=== PATIENT | male | born 1935 | race Caucasian/White ===

== ENCOUNTER → 2018-01-16 13:41 | Outpatient (CLI) | payer MEDICARE, OTHER, SELFPAY ==
[2018-01-16 15:11] LABS: Anion Gap 10 (5-15); BUN 20 mg/dL (7-18); BUN/Creat Ratio 16.7 RATIO (10-20); Calcium,Total 8.2 mg/dL (8.5-10.1); Chloride 108 mmol/L (98-107); EST Glomerular Filtration Rate 62 mL/min (>60); Est Glom Filt Rate - Afr Amer 74 mL/min (>60); Glucose 104 mg/dL (74-106); Potassium 4.3 mmol/L (3.5-5.1); Sodium Level 143 mmol/L (136-145); Thyroid Stim Hormone (TSH) 4.78 uIU/mL (0.358-3.74)
== END ==
PROVIDERS: Family Provider Family Medicine; PCP Family Medicine; Visit Provider Nurse Practitioner Adult Health
DX: I25.10 Atherosclerotic heart disease of native coronary artery without angina pectoris (principal); R97.20 Elevated prostate specific antigen [PSA]; R94.6 Abnormal results of thyroid function studies
CPT/HCPCS: 36415; 80048; 84153; 84443

== ENCOUNTER → 2018-02-12 17:06 | Outpatient (CLI) | payer MEDICARE, OTHER, SELFPAY ==
--- NOTE | 2018-02-12 | IMM_PTH ---
PATIENT: KATHARINA PERALTA LOC: [facility] U#:[id number] AGE/SX: 89/M ROOM: RE02/12/[address]: Dr. Kofi Gaffney MD : 1935 BED: DIS: SPEC #: [id number] RECD: 02/14/18 12:29 STATUS: JOSEMANUEL REJb #: [id number] JOSIE: 02/12/18 00:[address]: Kofi Gaffney DEPT: IMMUNOHISTOCHEMISTRY RECD BY: Lauren Stewart ENTERED: 02/14/18 12:31 SP TYPE: IMMUNO OTHR DR: Dr. Sander Morris MD Tissues: C - PROSTATE RIGHT D - PROSTATE LEFT Procedures: 34BE12 (add) P40 (add) 34BE12 (initial) PHYSICIAN & INSTITUTION [place] [address] SPECIMEN INFORMATION: Tissue Source: C - Right prostate, base, core biopsy, D - Left prostate, apex, core biopsy Clinical Info: Elevated PSA Specimen Number: [id number] C & D CPT code: 70681, 72490 x3 METHODOLOGY: Deparaffinized sections of prefer/formalin-fixed tissue or PAP/DQ stained slides are incubated with monoclonal/polyclonal antibodies/oligonucleotide probes. Localization is made via biotin free immunoperoxidase method. Appropriate controls are performed and reacted as expected. Results on target cell population are indicated in the following table: RESULTS: ANTIBODY / CLONE RESULT Block C P40 (BC28) positive 34BE12 (34BE12) positive Block D P40 (BC28) positive 34BE12 (34BE12) positive These tests were developed and their performance characteristics determined by [facility]. They may not have been cleared or approved by the [place]. Food and Drug Administration. The FDA has determined that such clearance or approval is not necessary. INTERPRETATION: C. Right prostate, base, core biopsy: Negative for adenocarcinoma. D. Left prostate, apex, core biopsy: Negative for adenocarcinoma. SJ:mike 02/14/18
--- NOTE | 2018-02-12 08:00 | PROSBIL_PTH ---
PATIENT: KATHARINA PERALTA LOC: [facility] U#:[id number] AGE/SX: 89/M ROOM: RE02/12/[address]: Dr. Kofi Gaffney MD : 1935 BED: DIS: SPEC #: [id number] RECD: 02/12/18 16:35 STATUS: JOSEMANUEL TEA #: [id number] JOSIE: 02/12/18 08:[address]: Kofi Gaffney DEPT: SURGICAL PATHOLOGY RECD BY: Jefferson Paulino ENTERED: 02/13/18 13:22 SP TYPE: PROST BX CIERRA DR: Dr. Sander Morris MD Tissues: A - PROSTATE RIGHT B - PROSTATE RIGHT C - PROSTATE RIGHT D - PROSTATE LEFT E - PROSTATE LEFT F - PROSTATE LEFT Procedures: PROSTATE BX HEADER OPERATION: Prostate biopsy PRE-OP DIAGNOSIS: Elevated PSA TISSUE SUBMITTED: A - Right apex, B - Right mid, C - Right base, D - Left apex, E - Left mid, F - Left base MICROSCOPIC DIAGNOSIS A. Right prostate, apex, core biopsy: Prostatic tissue, negative for malignancy. B. Right prostate, mid, core biopsy: Prostatic tissue, negative for malignancy. C. Right prostate, base, core biopsy: Focal high-grade prostatic intraepithelial neoplasia (HGPIN). See comment. D. Left prostate, apex, core biopsy: Prostatic tissue, negative for malignancy. Focal atrophy. See comment. E. Left prostate, mid, core biopsy: Prostatic tissue, negative for malignancy. Focal atrophy. F. Left prostate, base, core biopsy: Prostatic tissue, negative for malignancy. Focal atrophy and chronic inflammation. SJ:mike 02/14/18 COMMENT C & D. Immunohistochemistry ([id number]) supports the above diagnosis. MICROSCOPIC DESCRIPTION Slides are reviewed. GROSS DESCRIPTION A - Received is one container designated prostate, right apex. The specimen consists of one elongated fragment of light cassidy-white soft tissue measuring 1 cm in length and 0.1 cm in diameter. The specimen is totally submitted in one cassette. B - Received is one container designated prostate, right mid. The specimen consists of one elongated fragment of light cassidy-white soft tissue measuring 1.5 cm in length and 0.1 cm in diameter. The specimen is totally submitted in one cassette. C - Received is one container designated prostate, right base. The specimen consists of one elongated fragment of light cassidy-white soft tissue measuring 1.5 cm in length and 0.1 cm in diameter. The specimen is totally submitted in one cassette. D - Received is one container designated prostate, left apex. The specimen consists of one elongated fragment of light cassidy-white soft tissue measuring 1 cm in length and 0.1 cm in diameter. The specimen is totally submitted in one cassette. E - Received is one container designated prostate, left mid. The specimen consists of one elongated fragment of light cassidy-white soft tissue measuring 1.3 cm in length and 0.1 cm in diameter. The specimen is totally submitted in one cassette. F - Received is one container designated prostate, left base. The specimen consists of one elongated fragment of light cassidy-white soft tissue measuring 1.5 cm in length and 0.1 cm in diameter. The specimen is totally submitted in one cassette. / SJ:rg 02/13/18 TC:5 CPT: G0146
== END ==
PROVIDERS: Family Provider Family Medicine; PCP Family Medicine; Visit Provider Urology
DX: R97.20 Elevated prostate specific antigen [PSA] (principal)
CPT/HCPCS: 88305; 88341; 88342; G0416

== ENCOUNTER → 2018-03-20 10:38 | Outpatient (CLI) | payer MEDICARE, OTHER, SELFPAY | PROVIDERS: Family Provider Family Medicine; PCP Family Medicine; Visit Provider Urology | DX: N39.0 Urinary tract infection, site not specified (principal) | CPT/HCPCS: 87086 ==

== ENCOUNTER → 2018-05-21 08:50 | Outpatient (CLI) | payer MEDICARE, OTHER, SELFPAY ==
[2018-05-21 10:26] LABS: AST(SGOT) 20 U/L (15-37); Alanine Aminotransfer ALT/SGPT 17 U/L (16-61); Albumin, Serum 3.5 g/dL (3.2-5.0); Alkaline Phosphatase 83 U/L (45-117); Bilirubin, Direct 0.18 mg/dL (0.00-0.30); Cholesterol 106 mg/dL (200); Globulin 3.1 g/dL (2.2-4.2); High Density Lipoprotein 52 mg/dL; Protein, Total 6.6 g/dL (6.4-8.2); Triglycerides 67 mg/dL; Very Low Density Lipoprotein 13 mg/dL (5-40)
== END ==
PROVIDERS: Family Provider Family Medicine; PCP Family Medicine; Visit Provider Internal Medicine Cardiovascular Disease
DX: E78.5 Hyperlipidemia, unspecified (principal); Z79.899 Other long term (current) drug therapy
CPT/HCPCS: 36415; 80061; 80076

== ENCOUNTER → 2018-05-29 05:59 | Outpatient (CLI) | payer MEDICARE, OTHER, SELFPAY ==
--- NOTE | 2018-05-29 09:20 | STRESSREP ---
Stress Test Report Date: 05/21/2018 Procedure: Exercise tolerance test/imaging study Indications: Shortness of breath/dyspnea with exertion; abnormal ECG; CAD Consent: Per the patient Procedure: The patient exercised on a Andrea protocol for 6 minutes completing Stage II achieving a peak heart rate of 136 bpm (99 % predicted maximal heart rate) with a peak blood pressure 184/60 mmHg and a peak MET capacity of 7 METs. The baseline ECG demonstrated sinus bradycardia; right bundle branch block. The peak exercise ECG demonstrated continued right bundle branch block. There was a rare PVC pretest. The functional capacity was considered good. There was no complaint of chest discomfort during exercise or recovery. The examination was discontinued secondary to dyspnea. Impression: 1. Technically adequate (percent predicted maximal heart rate greater than 85%) exercise tolerance test 2. Peak exercise ECG demonstrated a continued right bundle branch block 3. There was a rare PVC pretest. 4. Nuclear images pending Myocardial perfusion imaging study: Technique: The patient was injected with 11.4 mCi of technetium 99m Cardiolite and subsequently rest SPECT Cardiolite nuclear imaging was obtained in the horizontal long, vertical long, and short axis views. The patient exercised on a Andrea protocol for 6 minutes completing Stage II achieving a peak heart rate of 136 bpm (99 % predicted maximal heart rate) with a peak blood pressure 184/60 mmHg and a peak MET capacity of 7 METs. The patient was injected with 33.8 mCi of technetium 99m Cardiolite and subsequently stress SPECT Cardiolite nuclear imaging was obtained in the horizontal long, vertical long, and short axis views. A gated Cardiolite study at peak stress was obtained. Interpretation: Rest and stress SPECT Cardiolite nuclear imaging status post realignment, normalization, and attenuation correction, demonstrates the appearance of extracardiac/gastrointestinal tracer uptake near the inferior segments, especially at rest, and otherwise appears to demonstrate relative uniform tracer uptake and myocardial perfusion appearing within normal limits. There is end systolic thickening and brightening. The gated Cardiolite study demonstrates myocardial thickening and inward wall motion. The reported LVEF is 55 %. Impression: 1. Rest and stress SPECT Cardiolite nuclear imaging demonstrate relative uniform tracer uptake and myocardial perfusion appearing within normal limits. 2. The gated Cardiolite study reports an LVEF of 55 %. This note was generated with [employer] software. It may contain incorrect words, spelling, and punctuation that were not noted in checking the note before signing.
== END ==
PROVIDERS: Family Provider Family Medicine; PCP Family Medicine; Visit Provider Internal Medicine Cardiovascular Disease
DX: I25.10 Atherosclerotic heart disease of native coronary artery without angina pectoris (principal); R06.00 Dyspnea, unspecified
CPT/HCPCS: 78452; 93017; A9500; A4216

== ENCOUNTER → 2018-08-29 08:55 | Outpatient (CLI) | payer MEDICARE, OTHER, SELFPAY ==
[2018-05-24 09:32] VITALS: BMI 25.2
--- OUTSIDE RECORDS SUMMARY | 2018-10-24 14:43 | XMS RPT_ITS ---
:1935 Author Organization OHIP Support Name Relationship Address Phone MARCY PERALTA Unavailable [address] + [place] [address] R Unavailable Unavailable Unavailable KINDER, MARCY Unavailable [address] + [place] [address] R Unavailable Unavailable Unavailable KINDER, MARCY Unavailable [address] + [place] [address] R Unavailable Unavailable Unavailable KINDER, MARCY Unavailable [address] + [place] [address] R Unavailable Unavailable Unavailable KINDER, MARCY Unavailable [address] + [place] [address] R Unavailable Unavailable Unavailable KINDER, MARCY Unavailable [address] + [place] [address] R Unavailable Unavailable Unavailable KINDER, MARCY Unavailable [address] + [place] [address] R Unavailable Unavailable Unavailable KINDER, MARCY Unavailable [address] + [place] [address] R Unavailable Unavailable Unavailable KINDER, MARCY Unavailable [address] [phone] [place] [address] R Unavailable Unavailable Unavailable KINDER, MARCY Unavailable [address] [phone] [place] [address] R Unavailable Unavailable Unavailable KINDER, MARCY Unavailable [address] [phone] [place] [address] R Unavailable Unavailable Unavailable Care Team Providers Name Role Phone Stephanie Ellington Attending Unavailable Sander Morris Primary Care Unavailable Stephanie Ellington Referring Unavailable Kofi Gaffney Attending Unavailable Sander Morris Primary Care Unavailable Kofi Gaffney Referring Unavailable Earl Mckinney Attending Unavailable Sander Morris Referring Unavailable Kofi Gaffney Attending Unavailable Gulshan, Kofi Sena Referring Unavailable Morris, Sander Primary Care Unavailable Moodispaw, Earl Attending Unavailable Morris, Sander Referring Unavailable Morin, Estella Attending Unavailable Moodispaw, Earl Attending Unavailable Moodispaw, Earl Referring Unavailable Morris, Sander Primary Care Unavailable Moodispaw, Earl Attending Unavailable Morris, Sander Referring Unavailable Moodispaw, Earl Attending Unavailable Moodispaw, Earl Referring Unavailable Morris, Sander Primary Care Unavailable Moodispaw, Earl Attending Unavailable Moodispaw, Earl Referring Unavailable Gulshan, Kofi Sena Attending Unavailable Gulshan, Kofi Sena Referring Unavailable Morris, Sander Primary Care Unavailable PROBLEMS PROBLEMS DATE TYPE CONDITION / CODE ATTENDING STATUS SOURCE 05/24/2018 Unknown I25.10 - Earl Mckinney Active [facility] Atherosclerotic heart Community disease of [facility] coronary artery Repository without angina pectoris / I25.10(ICD-10) 05/24/2018 Unknown R06.00 - Dyspnea, CedrickisEarl aeljandro Active [facility] unspecified / Community R06.00(ICD-10) Hospital Repository 05/21/2018 Unknown Z79.899 - Other long Earl Mckinney Active [facility] term (current) drug Community therapy / Hospital Z79.899(ICD-10) Repository 05/21/2018 Unknown E78.5 - Moodispaharriet, Earl Active [facility] Hyperlipidemia, [facility] unspecified / Hospital E78.5(ICD-10) Repository 05/08/2018 Unknown N39.0 - Urinary tract GulshanKofi mustafa Active [facility] infection, site not [facility] specified / Hospital N39.0(ICD-10) Repository PROCEDURES PROCEDURES No Procedure Records FoundRESULTS RESULTS PSA,TOTAL- DIAGNOSTIC Collected: 08/29/2018 Status: F Source: [place] 9:03 AM [facility] REPOSITORY TYPE CODE TESTS RESULT OUT OF REFERENCE UNITS RANGE LAB L501.9940 0.0-4.0 ng/mL PSA, High DIAGNOSTIC 11.10 Result Comment: This test was performed using the TPSA assay method for the [employer] chemistry system. Values obtained with different assay methods cannot be used interchangably. When changing PSA assays in the course of monitoring a patient, additional sequential testing should be carried out to confirm baseline values. Performed By: #### L501.9940 #### [facility] [address] [place], [address] STRESS REPORT Observed: 05/29/2018 Status: F Source: [place] 9:24 AM [facility] REPOSITORY [facility] Cardiovascular Services [address] [place] [address] MR#: [id number] Acct: [id number] Name: ROBERT PERALTA Rep #: [id number] : 1935 83 From: Earl Mckinney MD Primary Care: Sander Morris MD Status: REG CLI Ordering Dr: Hakan Taylor Stress Test Report Date: 05/21/2018 Procedure: Exercise tolerance test/imaging study Indications: Shortness of breath/dyspnea with exertion; abnormal ECG; CAD Consent: Per the patient Procedure: The patient exercised on a Andrea protocol for 6 minutes completing Stage II achieving a peak heart rate of 136 bpm (99 % predicted maximal heart rate) with a peak blood pressure 184/60 mmHg and a peak MET capacity of 7 METs. The baseline ECG demonstrated sinus bradycardia; right bundle branch block. The peak exercise ECG demonstrated continued right bundle branch block. There was a rare PVC pretest. The functional capacity was considered good. There was no complaint of chest discomfort during exercise or recovery. The examination was discontinued secondary to dyspnea. Impression: 1. Technically adequate (percent predicted maximal heart rate greater than 85%) exercise tolerance test 2. Peak exercise ECG demonstrated a continued right bundle branch block 3. There was a rare PVC pretest. 4. Nuclear images pending Myocardial perfusion imaging study: Technique: The patient was injected with 11.4 mCi of technetium 99m Cardiolite and subsequently rest SPECT Cardiolite nuclear imaging was obtained in the horizontal long, vertical long, and short axis views. The patient exercised on a Andrea protocol for 6 minutes completing Stage II achieving a peak heart rate of 136 bpm (99 % predicted maximal heart rate) with a peak blood pressure 184/60 mmHg and a peak MET capacity of 7 METs. The patient was injected with 33.8 mCi of technetium 99m Cardiolite and subsequently stress SPECT Cardiolite nuclear imaging was obtained in the horizontal long, vertical long, and short axis views. A gated Cardiolite study at peak stress was obtained. Interpretation: Rest and stress SPECT Cardiolite nuclear imaging status post realignment, normalization, and attenuation correction, demonstrates the appearance of extracardiac/gastrointestinal tracer uptake near the inferior segments, especially at rest, and otherwise appears to demonstrate relative uniform tracer uptake and myocardial perfusion appearing within normal limits. There is end systolic thickening and brightening. The gated Cardiolite study demonstrates myocardial thickening and inward wall motion. The reported LVEF is 55 %. Impression: 1. Rest and stress SPECT Cardiolite nuclear imaging demonstrate relative uniform tracer uptake and myocardial perfusion appearing within normal limits. 2. The gated Cardiolite study reports an LVEF of 55 %. This note was generated with [employer] software. It may contain incorrect words, spelling, and punctuation that were not noted in checking the note before signing. 05/29/18923 <Electronically signed by Earl Mckineny MD> Date Earl Mckinney MD CC: Sander Morris MD; Sander Morris MD; Earl Mckinney MD Date Dictated: 05/29/18919 Date Transcribed: 05/29/18919 Intelligence Applications: PM Signed CARDIOLOGY VISIT Observed: 05/24/2018 Status: F Source: [place] REPORT 10:24 AM [facility] REPOSITORY [facility] [place] [address] [place] [address] OFFICE VISIT Date of Service: 05/24/18 MR#: [id number] Acct: [id number] Name: ROBERT PERALTA Rep #: [id number] : 1935 Provider: Earl Mckinney MD Age/Sex: 83/M [place] [facility] [place]: Signed HPI HPI Details: ROBERT PERALTA, is a 83 M who presents to the office today for for outpatient cardiovascular follow-up of his history of underlying CAD, PACs/PVCs, sinus bradycardia, and abnormal ECG with a bifascicular block pattern, hyperlipidemia, with concerns of exertional shortness of breath/dyspnea. He states that he has noticed, as well as his has noticed, over time that he is more short of breath and dyspneic with exertional activity such as climbing stairs. He has attributed this to his age as opposed to other medical conditions. He does not describe associated chest discomfort. He has had no orthopnea or PND or peripheral pitting edema. There has been no near syncope or syncope. He recently had a lipid profile performed. His total cholesterol was 106 with an LDL of 41 and an HDL of 52. His triglyceride levels were within normal range at 67. His AST and ALT were within normal range. Intake Vital Signs05/24/18 Height 5 ft 6 in 05/24/18 Weight: 156 lb 05/24/18 Body Mass Index (BMI) 25.2 05/24/18 Blood Pressure 120/60 Intake Visit Reasons: 6 M FU Allergies No Known Allergies Allergy (Unverified 05/24/18 09:32) Medications aspirin 81 mg tablet,delayed release 81 mg PO QDAY #1 tab 11/07/17 [Rx Confirmed 05/24/18] atorvastatin 10 mg tablet 10 mg PO QDAY #1 tab 11/07/17 [Rx Confirmed 05/24/18] lisinopril 2.5 mg tablet 2.5 mg PO QDAY #90 tab 01/31/18 [Rx Confirmed 05/24/18] fluticasone 50 mcg/actuation nasal spray,suspension 1 spray INTRANASAL QDAY 05/08/18 [History Confirmed 05/24/18] tamsulosin 0.4 mg capsule 0.4 mg PO QDAY 05/08/18 [History Confirmed 05/24/18] vit C 150 mg-vit E 30 unit-lutein 5 zi-kbzyifoa-evpma 3 150 mg capsule 1 cap PO QDAY 05/08/18 [History Confirmed 05/24/18] finasteride 5 mg tablet 5 mg PO DAILY 05/24/18 [History Confirmed 05/24/18] [facility] Medical History Left anterior fascicular block (Acute) Hyperlipidemia (Chronic) RBBB (Acute) Sinus bradycardia (Acute) Premature atrial contractions (Acute) Premature ventricular contraction (Acute) 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) BPH (benign prostatic hyperplasia) (Acute) Surgical History History of cataract surgery (Resolved) History of inguinal hernia repair, bilateral (Resolved) Hx of appendectomy (Resolved) S/P excision of lipoma (Resolved) Social History Smoking Status: Former smoker alcohol intake: current details: occasional wine 3-4 x week substance use type: does not use ROS Const Const: Negative for fatigue, weakness, weight gain, weight loss, frequent falls or excessive sweating Eyes Eyes: Negative for change in vision, blurry vision or transient loss of vision ENT ENT: Negative for dizziness or balance problems Cardio Chest Pain: No Palpitations: No Edema: None Muscle aches with walking: None Resp Respiratory: Positive for SOB with activity (occasional increased SOB going up/downstairs); negative for SOB at rest GI GI: Negative vomiting or vomiting blood/hematemesis : Negative for hematuria Musc Musc: Negative for balance problems, muscle aches/ myalgia, muscle weakness or joint pain Skin Skin: Negative non-healing lesions or rash Neuro Neuro: Negative for weakness, blurry vision, dizziness, lightheadedness, frequent falls or orthostatic symptoms Nader Hematologic/Lymphatic: Negative for easy bleeding Endo Endo: Negative for fatigue or excessive sweating Psych Psych: Negative for anxiety or depression Allergy Allergy/Immunology: Negative for hives, Negative for rash Cardiology Exam Const Appearance: cooperative, healthy appearing, comfortable, no acute distress, well developed and well groomed Nutritional Appearance: thin Orientation: alert, awake and oriented x3 Head Head: normal to inspection, normocephalic and atraumatic Ears: hearing grossly normal bilaterally Nose: external nose normal Face and Sinus: face symmetric Mouth: oral mucosae normal Teeth and gingiva: fair dentition Eyes Eyelids: eyelids normal Conjunctivae: conjunctivae normal Pupils: PERRL EOM: EOM intact bilaterally Neck Neck: normal visual inspection and full ROM Carotids: normal carotid upstroke Chest Chest inspection: normal inspection of the chest and symmetric chest movement Auscultation: Bilateral: Clear to Auscultation Cardio Palpation: normal PMI Rate: regular rate Rhythm: regular rhythm Heart sounds: S1 normal and S2 normal GI GI: normal to inspection, soft, no hepatosplenomegaly and bowel sounds present Neuro General: alert, awake and oriented x3 Skin Skin: no rashes or lesions noted Extremities Pulses: Normal: Right Radial Pulse, Left Radial Pulse Lower Extremity Edema: None: Bilateral Psych Psychological: normal affect Supplemental Info He did have a transthoracic echocardiogram performed on 02/16/2012 Interpretation-summary Left ventricular systolic function is normal. The estimated ejection fraction is 55 %. Mild mitral annular calcification.Mild (1+) mitral valve insufficiency. Trivial tricuspid valve insufficiency. Trivial aortic valve insufficiency. Mild to moderate central and eccentric pulmonic insufficiency. Right ventricular systolic pressure estimated to be 25 mmHg. He had an exercise tolerance test on 05/12/2015. EXERCISE TOLERANCE TEST: The patient exercised on a Andrea protocol for 6 minutes completing stage 2 achieving a peak heart rate of 125 beats per minute (89% predicted maximum heart rate) and a peak blood pressure of 150/64 mmHg and a peak MET capacity of 7 METS. The baseline ECG demonstrated sinus bradycardia with a right bundle branch block pattern. The peak exercise ECG demonstrated no obvious ECG changes compared to baseline. There was a rare PAC during recovery. The functional capacity was considered average. The patient had no complaint of chest discomfort during exercise or recovery. The examination was discontinued secondary to dyspnea. IMPRESSION: 1. Technically adequate (percent predicted maximum heart rate greater than 85%) exercise tolerance test. 2. Peak exercise ECG with continued right bundle branch block with no obvious change compared to baseline. 3. Rare PAC during recovery. 4. Nuclear images pending. MYOCARDIAL PERFUSION IMAGING STUDY: TECHNIQUE: The patient was injected with 11.1 mCi of Tc99m Cardiolite and subsequently rest SPECT Cardiolite nuclear imaging was obtained in the horizontal long, vertical long and short axes views. The patient exercised on a Andrea protocol for 6 minutes achieving a peak heart rate of 125 beats per minute (89% predicted maximum heart rate) and a peak blood pressure of 150/64 mmHg and a peak MET capacity of 7 METS. The patient was injected with 36.0 mCi of Tc99m Cardiolite and subsequently stress SPECT Cardiolite nuclear imaging was obtained in the horizontal long, vertical long and short axes views. A gated Cardiolite study at peak stress was obtained. INTERPRETATION: Rest and stress SPECT Cardiolite nuclear imaging both demonstrate an area of extracardiac/hepatic and gastrointestinal tracer uptake near the inferior segments. Both demonstrate an area of diminished tracer uptake in portions of the basal inferoseptal and basal inferior segments extending through the mid inferior segments and the inferior apical segments. These findings appear to be either similar between rest and stress, or more prominent at rest as opposed to stress. The inferoapical segment appears somewhat more prominent following stress as opposed to rest. There are similar type findings on the resting and stress polar map images. There is notation of end systolic thickening and brightening. The gated Cardiolite study demonstrates myocardial thickening and inward wall motion. The reported LVEF was 52%. The aforementioned changes appear compatible with the effects of shifting soft tissue attenuation/artifact and/or gastrointestinal tracer uptake/detraction and physiologic apical thinning with no myocardial perfusion changes considered diagnostic for previous myocardial injury/infarction or stress-induced myocardial ischemia. IMPRESSION: 1. Rest and stress SPECT Cardiolite nuclear imaging demonstrate myocardial perfusion changes appearing compatible with the effects of shifting soft tissue attenuation/artifact and gastrointestinal tracer uptake/detraction and physiologic apical thinning with no myocardial perfusion changes considered diagnostic for previous myocardial injury/infarction or stress-induced myocardial ischemia. 2. The gated Cardiolite study reports an LVEF of 52%. He had a diagnostic cardiac catheterization performed on 05/08/2012 at [facility]. FINAL IMPRESSION 1. Elevation of the resting left ventricular end-diastolic pressure, 2. Left ventricle: A. Normal left ventricular size, wall motion, systolic function. B. Estimated LVEF 55 percent. 3. Left main coronary artery: A. Minimal luminal irregularities. 4. Left anterior descending coronary: A. Proximal 50 percent diffuse irregular appearing stenosis (pre and status post first septal transportation escort). B. Diagonal branch number 1 with proximal 50-75 percent appearing stenosis (located in the area of a eagle bend), 5. Left circumflex coronary. A. Large codominant vessel, 13. Diffuse minimal luminal irregularities. 6. Right coronary artery. A. Large codominant vessel, 13. Diffuse minimal luminal irregularities. He had an FFR procedure performed at [facility] on 07/25/2012. Impression: 60 to 70% stenosis in the proximal to mid left anterior descending artery. Fractional Flow Union of proximal to mid left anterior descending artery 0.83, findings were not hemodynamically significant. Closure of access site with the [employer]. He did have a Holter monitor performed on 03/13/2012. SINUS RHYTHM WITH BUNDLE BRANCH BLOCK MINIMUM HR 47 8PM AT 2:06:27 AM, NO ACTIVITY OR SYMPTOM RECORDED. AVERAGE HR 64 BPM MAXIMUM HR 120 8PM AT 10:02:28 AM, NO ACTIVITY OR SYMPTOM RECORDED. RARE ISOLATED PREMATURE ATRIAL COMPLEXES. 5 ATRIAL COUPLETS. TWO RUNS TOTALING 6 BEATS. THE LONGEST AND FASTEST RUN WAS AN ATRIAL TRIPLET RATE 156 BPM AT 11:19:57AM. RARE ISOLATED PREMATURE VENTRICULAR COMPLEXES. NO RUNS NOTED. NO SYMPTOMS DOCUMENTED IN 24 HOUR HOLTER DIARY. He had a chest CT scan for coronary artery evaluation on 05/01/2012 CORONARY ARTERIES LEFT MAIN CORONARY ARTERY This is a large vessel, which appears to give rise to the left anterior descending and left circumflex coronary arteries. It appears to have a mid mild eccentric nonobstructive soft plaque. LEFT ANTERIOR DESCENDING CORONARY ARTERY This is a large vessel, which appears to give rise to a small septal transportation escort and a moderate sized first diagonal branch as it courses towards the apical area. The LAD demonstrates proximal mixed mild eccentric nonobstructive soft and calcified plaque. Following the septal transportation escort and diagonal branch there appears to be an area compatible with moderate eccentric nonobstructive soft plaque. LEFT CIRCUMFLEX CORONARY ARTERY This is a large potentially codominant system, which appears to give rise to a. moderate sized obtuse marginal branch. The LCX distribution appears to demonstrate diffuse mild eccentric nonobstructive soft plaque. The mid LCX suggests an area appearing compatible with a moderate eccentric nonobstructive soft plaque. RIGHT CORONARY ARTERY This appears to be a large dominant system. Ft demonstrates proximal mixed mild eccentric nonobstructive and calcified plaque. There appears to be diffuse mild eccentric nonobstructive soft plaque. STUDY FINDINGS Left ventricle: Left ventricular cine appears compatible with borderline low left ventricular systolic function. Left atrium: Patent without obvious angiographic evidence of a filling defect. Mitral valve: Appearing bileaflet. Aortic valve: Appearing trileaflet. PULMONARY ARTERIES The main pulmonary artery and the right and left pulmonary arteries that are visualized appear without obvious filling defect. THORACIC AORTA The distal descending thoracic aorta appears to demonstrate mild eccentric calcified plaque. CORONARY CALCIUM SCORE The coronary calcium score is reported at 42.32, which, according to prepublished reference tables would be compatible with mild plaque burden with the likelihood of mild coronary artery disease. Assessment AND Plan 1. 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 Based upon his cardiovascular disease process he will have follow-up evaluation with an exercise tolerance test/imaging study. Depending upon the findings he may or may not need additional cardiac versus noncardiac evaluation. In the interim he will continue his medical man trend. Orders Orders: 2. Premature atrial beat I49.1 Plan He does have a history of PACs and PVCs. He appears to be without obvious symptoms at this time. He will T need to be followed. 3. Premature ventricular beat I49.3 Plan Again he has a history of PACs and PVCs. Again he is without obvious symptoms at this time. He will continue to be followed. 4. Sinus bradycardia R00.1 Plan His cardiac rate and rhythm have been followed. He appears to be doing well at the present time. 5. 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 He continues to be followed and evaluated as deemed appropriate. 6. Hyperlipidemia, unspecified hyperlipidemia type E78.5 Plan His lipid labs have been reviewed. He will continue lipid- lowering therapy and follow-up as deemed appropriate. 7. Dyspnea, unspecified type R06.00 Plan He will undergo evaluation of his dyspnea as noted above Orders Orders: Plan Detail Additional Comments Thank you for allowing me to participate in the care of your patient. Please don't hesitate to call if any issues arise. This note was generated using a voice recognition system and there may be incorrect words, spelling or punctuation that were not noted when reviewing the office note prior to saving. 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 transplanted heart: eagle heart Premature atrial beat I49.1 Premature ventricular beat I49.3 Sinus bradycardia R00.1 RBBB I45.10 Hyperlipidemia, unspecified hyperlipidemia type E78.5 Hyperlipidemia type: unspecified Dyspnea, unspecified type R06.00 Dyspnea type: unspecified 05/24/18 1024 <Electronically signed by Earl Mckinney MD> Date Earl Mckinney MD Cosigner Signature: Date (if applicable) CC: Sander Morris MD LIVER PROFILE Collected: 05/21/2018 Status: F Source: [place] 9:02 AM [facility] REPOSITORY Order Comment: Order Date: 06/23/17 Order Info: [id number] - *Hepatic Function Panel Order Info: [id number] - *Lipid Profile CC PCP Comments: 12 hours fasting, may have water. TYPE CODE TESTS RESULT OUT OF RANGE REFERENCE UNITS LAB L501.1500 6.4-8.2 g/dL Normal T PROT 6.6 LAB L501.1800 3.2-5.0 g/dL Normal ALB 3.5 LAB L501.1950 2.2-4.2 g/dL Normal GLOB 3.1 LAB L501.4100 15-37 U/L Normal AST 20 LAB L501.4305 45-117 U/L Normal ALK P 83 LAB L501.4405 16-61 U/L Normal ALT 17 LAB L501.4600 0.20-1.00 mg/dL Normal T BILI 0.70 LAB L501.4700 0.00-0.30 mg/dL Normal D BILI 0.18 Performed By: #### L500.3400 #### [facility] [place], [address] LIPID PROFILE Collected: 05/21/2018 Status: F Source: [place] 9:02 AM [facility] REPOSITORY Order Comment: Order Date: 06/23/17 Order Info: [id number] - *Hepatic Function Panel Order Info: [id number] - *Lipid Profile CC PCP Comments: 12 hours fasting, may have water. TYPE CODE TESTS RESULT OUT OF RANGE REFERENCE UNITS LAB L501.4900 200 mg/dL Normal CHOL 106 Result Comment: <200 mg/dL Desirable 200-240 mg/dL Borderline >240 mg/dL High Risk LAB L501.5000 mg/dL Normal TRIG 67 Result Comment: The drugs N-Acetylcysteine and Metamizole may falsely depress this assay. Serum Triglycerides Reference Interval Normal <150 mg/dL Borderline high 150 - 199 mg/dL High 200 - 499 mg/dL Very High > or = 500 mg/dL LAB L501.6400 mg/dL Normal HDL 52 Result Comment: The drugs N-Acetylcysteine and Metamizole may falsely depress this assay. Reference Range HDL <40 mg/dL Low HDL Cholesterol HDL >or= 60 mg/dL High HDL Cholesterol LAB L501.6500 0-130 mg/dL Normal LDL 41 LAB L501.6600 5-40 mg/dL Normal VLDL 13 Performed By: #### L500.4100 #### [facility] [address] [place], [address] Observed: 03/20/2018 Status: F Source: FAN CULTURE, URINE 10:45 AM [facility] REPOSITORY Urine Culture Culture exhibits no growth. Performed By: #### M100.0650 #### [facility] [address] [place], [address] PROSTATE BIOPSY Observed: 02/12/2018 Status: F Source: FAN BILATERAL 8:00 AM [facility] REPOSITORY Patient: ROBERT PERALTA : 1935 (82/M) Acct Num: [id number] Phys: Gulshan HERNDON,Ramon Unit Num: [id number] Loc: LABSPEC Specimen: [id number] Received: 02/12/181634 Spec Type: PROST BX TISSUES TISSUES: A. PROSTATE RIGHT B. PROSTATE RIGHT C. PROSTATE RIGHT D. PROSTATE LEFT E. PROSTATE LEFT F. PROSTATE LEFT COMMENT C AND D. Immunohistochemistry ([id number]) supports the above diagnosis. GROSS DESCRIPTION A - Received is one container designated prostate, right apex. The specimen consists of one elongated fragment of light cassidy-white soft tissue measuring 1 cm in length and 0.1 cm in diameter. The specimen is totally submitted in one cassette. B - Received is one container designated prostate, right mid. The specimen consists of one elongated fragment of light cassidy-white soft tissue measuring 1.5 cm in length and 0.1 cm in diameter. The specimen is totally submitted in one cassette. C - Received is one container designated prostate, right base. The specimen consists of one elongated fragment of light cassidy-white soft tissue measuring 1.5 cm in length and 0.1 cm in diameter. The specimen is totally submitted in one cassette. D - Received is one container designated prostate, left apex. The specimen consists of one elongated fragment of light cassidy-white soft tissue measuring 1 cm in length and 0.1 cm in diameter. The specimen is totally submitted in one cassette. E - Received is one container designated prostate, left mid. The specimen consists of one elongated fragment of light cassidy-white soft tissue measuring 1.3 cm in length and 0.1 cm in diameter. The specimen is totally submitted in one cassette. F - Received is one container designated prostate, left base. The specimen consists of one elongated fragment of light cassidy-white soft tissue measuring 1.5 cm in length and 0.1 cm in diameter. The specimen is totally submitted in one cassette. / GYPSY:mike 02/13/18 TC:5 CPT: G0146 HEADER OPERATION: Prostate biopsy PRE-OP DIAGNOSIS: Elevated PSA TISSUE SUBMITTED: A - Right apex, B - Right mid, C - Right base, D - Left apex, E - Left mid, F - Left base MICROSCOPIC DESCRIPTION Slides are reviewed. MICROSCOPIC DIAGNOSIS A. Right prostate, apex, core biopsy: Prostatic tissue, negative for malignancy. B. Right prostate, mid, core biopsy: Prostatic tissue, negative for malignancy. C. Right prostate, base, core biopsy: Focal high-grade prostatic intraepithelial neoplasia (HGPIN). See comment. D. Left prostate, apex, core biopsy: Prostatic tissue, negative for malignancy. Focal atrophy. See comment. E. Left prostate, mid, core biopsy: Prostatic tissue, negative for malignancy. Focal atrophy. F. Left prostate, base, core biopsy: Prostatic tissue, negative for malignancy. Focal atrophy and chronic inflammation. GYPSY:mike 02/14/18 PSA RESULTS Date Time Test Result Flag (u) Normal Range 12/12/14 1356 PSA,TOT SCREEN 14.30 H 0.00-4.00 ng/mL This test was performed using the TPSA assay method for the [employer] (Former[employer]) system. Values obtained with different assay methods cannot be used interchangably. When changing PSA assays in the course of monitoring a patient, additional sequential testing should be carried out to confirm baseline values. Date Time Test Result Flag (u) Normal Range 01/16/18 1354 PSA, DIAGNOSTIC 20.80 H 0.0-4.0 ng/mL This test was performed using the TPSA assay method for the [employer] chemistry system. Values obtained with different assay methods cannot be used interchangably. When changing PSA assays in the course of monitoring a patient, additional sequential testing should be carried out to confirm baseline values. Signed Tao Villeda 02/15/18 <signature on file> Performed By: #### PPROSBIL #### [facility] [address] [place] [address]. [place], [address] IMMUNOHISTOCHEMISTRY Observed: 02/12/2018 Status: F Source: [place] 12:00 AM [facility] REPOSITORY Patient: ROBERT EPRALTA : 1935 (82/M) Acct Num: [id number] Phys: Gulshan HERNDON,Kofi Sena Unit Num: [id number] Loc: LABSPEC Specimen: [id number] Received: 02/14/18 - 1229 Spec Type: IMMUNO TISSUES TISSUES: C. PROSTATE RIGHT - BASE D. PROSTATE LEFT - APEX SPECIMEN INFORMATION: Tissue Source: C - Right prostate, base, core biopsy, D - Left prostate, apex, core biopsy Clinical Info: Elevated PSA Specimen Number: [id number] C AND D CPT code: 35449, 05515 x3 METHODOLOGY: Deparaffinized sections of prefer/formalin-fixed tissue or PAP/DQ stained slides are incubated with monoclonal/polyclonal antibodies/oligonucleotide probes. Localization is made via biotin free immunoperoxidase method. Appropriate controls are performed and reacted as expected. Results on target cell population are indicated in the following table: RESULTS: ANTIBODY / CLONE RESULT Block C P40 (BC28) positive 34BE12 (34BE12) positive Block D P40 (BC28) positive 34BE12 (34BE12) positive These tests were developed and their performance characteristics determined by [facility]. They may not have been cleared or approved by the U.S. Food and Drug Administration. The FDA has determined that such clearance or approval is not necessary. INTERPRETATION: C. Right prostate, base, core biopsy: Negative for adenocarcinoma. D. Left prostate, apex, core biopsy: Negative for adenocarcinoma. SJ:mike 02/14/18 [facility] [address] [address] Signed Tao Berkowitzin 02/15/18 <signature on file> Performed By: #### PIMM #### [facility] [address] [place] [address]. [place], [address] BASIC METABOLIC Collected: 01/16/2018 Status: F Source: [place] PROFILE (BMP) 1:54 PM [facility] REPOSITORY Order Comment: Order Date: 08/14/17 Order Info: 0667-1 - BMP Order Info: 3016-3 - [facility] SEND RESULTS OF PSAD TO [facility]. TYPE CODE TESTS RESULT OUT OF RANGE REFERENCE UNITS LAB L501.0100 74-106 mg/dL Normal GLU 104 Result Comment: Fasting Glucose result from 100 to 125 mg/dL suggests IMPAIRED HOMEOSTASIS per A.D.A. criteria. Please note revised GLUCOSE reference range effective 2017. LAB L501.1000 7-18 mg/dL High BUN 20 LAB L501.1100 0.70-1.30 mg/dL Normal CREAT,SERUM 1.20 Result Comment: The validity of the calculated GFR AND GFRAA in patients over 70 years has not been determined. Clinical correlation is essential. LAB L501.1110 >60 mL/min Normal EST GFR 62 Result Comment: Non- GFR Calc LAB L501.1115 >60 mL/min Normal EST GFR - AA 74 Result Comment: GFR Calc LAB L501.1300 10-20 RATIO Normal BUN/CRE 16.7 LAB L501.2200 8.5-10.1 mg/dL Low CA 8.2 LAB L501.5300 136-145 mmol/L NA Normal 143 LAB L501.5600 3.5-5.1 mmol/L K Normal 4.3 LAB L501.5900 98-107 mmol/L High CL 108 LAB L501.6100 21.0-32.0 mmol/L Normal CO2 25.0 LAB L501.6200 5-15 Normal GAP 10 Performed By: #### L500.2500, L501.9520 #### [facility] [address] [place], [address] THYROID STIM HORMONE Collected: 01/16/2018 Status: F Source: FAN (TSH) 1:54 PM [facility] REPOSITORY Order Comment: Order Date: 08/14/17 Order Info: 0667-1 - BMP Order Info: 3016-3 - TSH SEND RESULTS OF PSAD TO [facility]. TYPE CODE TESTS RESULT OUT OF RANGE REFERENCE UNITS LAB L501.9520 0.358-3.74 uIU/mL High TSH 4.78 Performed By: #### L500.2500, L501.9520 #### [facility] [address] [place], [address] PSA,TOTAL- DIAGNOSTIC Collected: 01/16/2018 Status: F Source: FAN 1:54 PM [facility] REPOSITORY Order Comment: Order Date: 08/14/17 Order Info: 0667-1 - BMP Order Info: 3016-3 - TSH SEND RESULTS OF PSAD TO [facility]. TYPE CODE TESTS RESULT OUT OF REFERENCE UNITS RANGE LAB L501.9940 0.0-4.0 ng/mL PSA, High DIAGNOSTIC 20.80 Result Comment: This test was performed using the TPSA assay method for the [employer] chemistry system. Values obtained with different assay methods cannot be used interchangably. When changing PSA assays in the course of monitoring a patient, additional sequential testing should be carried out to confirm baseline values. Performed By: #### L501.9940 #### [facility] [address] [facility] [place], [address] ALLERGIES ALLERGIES DATE TYPE / CODE NAME / CODE REACTION SEVERITY SOURCE 05/24/2018 Drug No Known Unknown [facility] Allergy/4160 Allergies/F00 Hospital 13057(SNOMED 7584993(RXNOR Repository CT) M) ENCOUNTERS ENCOUNTERS ADMIT/DISCHARGE ACCOUNT ADMITTING ENCOUNTER LOCATION SOURCE NUMBER CLASS 08/29/2018 [id number] Ambulatory [place] 0 [facility] ing:LAB Repository 05/29/2018 [id number] Ambulatory [place] 4 [facility] ing:CVS Repository 05/29/2018 [id number] Ambulatory BMSBuilding:W [place] 0 [facility] Repository 05/24/2018/ [id number] Ambulatory BMSBuilding:B [place] 8 2 [facility] Repository 05/21/2018 [id number] Ambulatory [place] 6 [facility] ing:LAB Repository 05/11/2018 [id number] Ambulatory BMSBuilding:B [place] 7 [facility] Repository 05/08/2018 [id number] Ambulatory BMSBuilding:B [place] 9 [facility] Repository 03/20/2018 [id number] Ambulatory [place] 5 [facility] ing:LAB Repository 03/07/2018 [id number] Ambulatory BMSBuilding:B [place] 1 [facility] Repository 02/12/2018 [id number] Ambulatory [place] 3 [facility] ing:LABSPEC Repository 01/16/2018 [id number] Ambulatory [place] 3 [facility] ing:LAB.FUTUR Repository E PAYERS PAYERS ENCOUNTER GUARANTOR PAYER SUBSCRIBER SOURCE 08/29/2018 ROBERT A Primary ROBERT A [place] [id number] Insurance:MEDICARE KINDERDOB: [facility] [id number] Number: Repository [id number]: [phone] [id number] [phone] (HP) Date:2018-08-29 08/29/2018 Secondary ROBERT A [place] Insurance:AARPPolicy KINDERDOB: [facility] Number: [id number] [facility] [id number] Repository Date:3541-97-07[address], [place] [address]JT: 08/29/2018 Tertiary NOT GIVENUNK [place] Insurance:SELF PAY [facility] Number: Effective Repository Date:2018-08-29 05/29/2018 ROBERT A Primary ROBERT A [place] [id number] Insurance:MEDICARE KINDERDOB: [facility] [id number] Number: Repository [id number]: [phone] [id number] [phone] (HP) Date:2018-05-24 05/29/2018 Secondary ROBERT A [place] Insurance:AARPPolicy KINDERDOB: Community Number: [id number] [facility] [id number] Repository Date:9807-55-44NS [address], [place] [address]VJ: 05/29/2018 Tertiary NOT GIVENUNK [place] Insurance:SELF PAY [facility] Number: Effective Repository Date:2018-05-24 05/29/2018 ROBERT A Primary ROBERT A [place] [id number] Insurance:MEDICARE KINDERDOB: Community AMALIA PART A olicy [id number] Number: Repository [address]Urt: 330 [id number] [phone] () Date:2018-05-24 05/29/2018 Secondary ROBERT A [place] Insurance:AARPPolicy KINDERDOB: Community Number: [id number] Hospital [id number] Repository Date:2313-56-91GS [address], [place] [address]JK: 05/29/2018 Tertiary NOT GIVENUNK [place] Insurance:SELF PAY [facility] Number: Effective Repository Date:2018-05-29 05/24/2018 ROBERT A Primary ROBERT A [place] [id number] Insurance:MEDICARE KINDERDOB: Community AMALIA PART A olic [id number], [place] Number: Repository [address]Ktt: 330 [id number] [phone] () Date:2018-04-23 05/24/2018 Secondary ROBERT A [place] Insurance:AARPPolicy KINDERDOB: Community Number: [id number] Hospital [id number] Repository Date:5889-62-96[address], [place] [address]AH: 05/24/2018 Tertiary NOT GIVENUNK [place] Insurance:SELF PAY [facility] Number: Effective Repository Date:2018-05-24 05/21/2018 ROBERT A Primary ROBERT A [place] [id number] Insurance:MEDICARE KINDERDOB: Community AMALIA PART A [facility] [id number] [place] Number: Repository [id number]: 330 [id number] [phone] () Date:2018-05-21 05/21/2018 Secondary ROBERT A [place] Insurance:AARPPolicy KINDERDOB: Community Number: [id number] Hospital [id number] Repository Date:0291-46-36UH [address], [place] [address]TJ: 05/21/2018 Tertiary NOT GIVENUNK [place] Insurance:SELF PAY [facility] Number: Effective Repository Date:2018-05-21 05/11/2018 Robert A Primary Robert A [place] [id number] Insurance:MEDICARE [facility]inderDOB: [facility] [id number] [place] Number: Repository [address]Vei: 330 [id number] [phone] () Date:2018-03-15 05/11/2018 Secondary Robert A [place] Insurance:AARPPolicy KinderDOB: Community Number: [id number] Hospital [id number] Repository Date:9160-67-95QJ [address], [place] [address]KS: 05/11/2018 Tertiary NOT GIVENUNK [place] Insurance:SELF PAY [facility] Number: Effective Repository Date:2018-03-15 05/08/2018 Robert A Primary Robert A [place] [id number] Insurance:MEDICARE [facility]inderDOB: [facility] [id number] [place] Number: Repository [id number]: 330 [id number] [phone] (HP) Date:2018-05-08 05/08/2018 Secondary Robert A [place] Insurance:AARPPolicy KinderDOB: Community Number: [id number] Hospital [id number] Repository Date:1832-06-12CJ [address], [place] [address]MM: 05/08/2018 Tertiary NOT GIVENUNK [place] Insurance:SELF PAY [facility] Number: Effective Repository Date:2018-05-08 03/20/2018 Robert A Primary Robert A [place] [id number] Insurance:MEDICARE KinderDOB: Community AMALIA PART A [facility] [id number], [place] Number: Repository [id number]: 330 [id number] [phone] () Date:2018-03-20 03/20/2018 Secondary Robert A [place] Insurance:AARPPolicy KinderDOB: Community Number: [id number] Hospital [id number] Repository Date:6235-71-71SF [facility] [address], [place] [address]ZS: 03/20/2018 Tertiary NOT GIVENUNK [place] Insurance:SELF PAY [facility] Number: Effective Repository Date:2018-03-20 03/07/2018 Robert A Primary Robert A [place] [id number] Insurance:AARPPolicy KinderDOB: [facility] Number: [id number], [place] [id number] Repository [address]Wnl: Date:6659-02-85SX [phone] [id number] [place] -4 () [address]OQ: 03/07/2018 Secondary Robert A [place] Insurance:MEDICARE KinderDOB: Community PART A [facility] [id number] Hospital Number: Repository [id number] Date:2017-09-21 03/07/2018 Tertiary NOT GIVENUNK [place] Insurance:SELF PAY [facility] Hospital Number: Effective Repository Date:2017-09-21 02/12/2018 Robert A Primary Robert A [place] [id number] Insurance:MEDICARE KinderDOB: Community AMALIA PART A [facility] [id number], [place] Number: Repository [address]Cgt: [id number] [phone] Date:2018-02-12 () 02/12/2018 Secondary Robert A [place] Insurance:AARPPolicy KinderDOB: Community Number: [id number] Hospital [id number] Repository Date:4104-35-45CB [facility] [address], [place] [address]HS: 02/12/2018 Tertiary NOT GIVENUNK [place] Insurance:SELF PAY [facility] Number: Effective Repository Date:2018-02-12 01/16/2018 Robert A Primary Robert A [place] [id number] Insurance:MEDICARE KinderDOB: [facility] PART A [facility] [id number], [place] Number: Repository [id number]: [phone] [id number] [phone] () Date:2018-01-16 01/16/2018 Secondary Robert A [place] [facility] KinderDOB: [facility] Number: [id number] Hospital [id number] Repository Date:4540-80-44KW [address], [place] [address]MH: 01/16/2018 Tertiary NOT GIVENUNK [place] Insurance:SELF PAY [facility] Number: Effective Repository Date:2018-01-16
== END ==
PROVIDERS: Family Provider Family Medicine; PCP Family Medicine; Referring Provider Urology; Visit Provider Urology
DX: R97.20 Elevated prostate specific antigen [PSA] (principal)
CPT/HCPCS: 36415; 84153

== ENCOUNTER → 2019-02-28 10:09 | Outpatient (CLI) | payer MEDICARE, OTHER, SELFPAY | PROVIDERS: Family Provider Family Medicine; PCP Family Medicine; Referring Provider Urology; Visit Provider Urology | DX: R97.20 Elevated prostate specific antigen [PSA] (principal) | CPT/HCPCS: 36415; 84153 ==

== ENCOUNTER → 2019-05-03 08:33 | Outpatient (CLI) | payer MEDICARE, OTHER, SELFPAY ==
[2019-05-03 09:16] LABS: AST(SGOT) 20 U/L (15-37); Alanine Aminotransfer ALT/SGPT 14 U/L (16-61); Albumin, Serum 3.6 g/dL (3.2-5.0); Alkaline Phosphatase 83 U/L (45-117); Bilirubin, Direct 0.18 mg/dL (0.00-0.30); Cholesterol 115 mg/dL (200); Globulin 3.1 g/dL (2.2-4.2); High Density Lipoprotein 56 mg/dL; Protein, Total 6.7 g/dL (6.4-8.2); Triglycerides 57 mg/dL; Very Low Density Lipoprotein 11 mg/dL (5-40)
== END ==
PROVIDERS: Internal Medicine Cardiovascular Disease; Family Provider Family Medicine; PCP Family Medicine; Referring Provider Nurse Practitioner Family; Visit Provider Nurse Practitioner Family
DX: E78.5 Hyperlipidemia, unspecified (principal)
CPT/HCPCS: 36415; 80061; 80076

== ENCOUNTER → 2019-09-03 11:41 | Outpatient (CLI) | payer MEDICARE, OTHER, SELFPAY ==
[2019-05-23 14:01] VITALS: BMI 25.3
[2019-09-03 14:35] LABS: Anion Gap 6 (5-15); BUN 17 mg/dL (7-18); BUN/Creat Ratio 16.2 RATIO (10-20); Calcium,Total 8.7 mg/dL (8.5-10.1); Chloride 110 mmol/L (98-107); Creatinine, Serum 1.05 mg/dL (0.70-1.30); EST Glomerular Filtration Rate 71 mL/min (>60); Est Glom Filt Rate - Afr Amer 86 mL/min (>60); Glucose 89 mg/dL (74-106); Potassium 4.3 mmol/L (3.5-5.1); Sodium Level 140 mmol/L (136-145); Thyroid Stim Hormone (TSH) 4.79 uIU/mL (0.358-3.74)
== END ==
PROVIDERS: Family Provider Family Medicine; PCP Family Medicine; Referring Provider Family Medicine; Visit Provider Family Medicine
DX: R97.20 Elevated prostate specific antigen [PSA] (principal); I25.10 Atherosclerotic heart disease of native coronary artery without angina pectoris; R94.6 Abnormal results of thyroid function studies
CPT/HCPCS: 36415; 80048; 84153; 84443

== ENCOUNTER → 2019-11-18 08:43 | Outpatient (CLI) | payer MEDICARE, OTHER, SELFPAY ==
[2019-05-23 14:01] VITALS: BMI 25.3
[2019-11-18 09:29] LABS: AST(SGOT) 22 U/L (15-37); Alanine Aminotransfer ALT/SGPT 18 U/L (16-61); Albumin, Serum 3.6 g/dL (3.2-5.0); Alkaline Phosphatase 82 U/L (45-117); Bilirubin, Direct 0.17 mg/dL (0.00-0.30); Cholesterol 112 mg/dL (200); Globulin 3.4 g/dL (2.2-4.2); High Density Lipoprotein 51 mg/dL; Triglycerides 50 mg/dL; Very Low Density Lipoprotein 10 mg/dL (5-40)
== END ==
PROVIDERS: PCP Family Medicine; Referring Provider Nurse Practitioner Family; Visit Provider Nurse Practitioner Family
DX: E78.5 Hyperlipidemia, unspecified (principal)
CPT/HCPCS: 36415; 80061; 80076

== ENCOUNTER → 2020-05-08 07:57 | Outpatient (CLI) | payer MEDICARE, OTHER, SELFPAY ==
[2019-11-20 10:52] VITALS: BMI 25.8
[2020-05-08 08:47] LABS: AST(SGOT) 17 U/L (15-37); Alanine Aminotransfer ALT/SGPT 12 U/L (16-61); Albumin, Serum 3.6 g/dL (3.2-5.0); Alkaline Phosphatase 83 U/L (45-117); Bilirubin, Direct 0.15 mg/dL (0.00-0.30); Cholesterol 114 mg/dL (200); Globulin 3.1 g/dL (2.2-4.2); High Density Lipoprotein 46 mg/dL; Protein, Total 6.7 g/dL (6.4-8.2); Triglycerides 56 mg/dL; Very Low Density Lipoprotein 11 mg/dL (5-40)
== END ==
PROVIDERS: PCP Family Medicine; Referring Provider Nurse Practitioner Family; Visit Provider Nurse Practitioner Family
DX: E78.00 Pure hypercholesterolemia, unspecified (principal); E78.5 Hyperlipidemia, unspecified
CPT/HCPCS: 36415; 80061; 80076

== ENCOUNTER → 2020-07-08 08:46 | Outpatient (CLI) | payer MEDICARE, OTHER, SELFPAY ==
[2020-05-11 11:19] VITALS: BMI 25.0
[2020-07-08 10:02] LABS: Anion Gap 5 (5-15); BUN 26 mg/dL (7-18); BUN/Creat Ratio 20.6 RATIO (10-20); Calcium,Total 8.5 mg/dL (8.5-10.1); Chloride 110 mmol/L (98-107); Creatinine, Serum 1.26 mg/dL (0.70-1.30); EST Glomerular Filtration Rate 58 mL/min (>60); Est Glom Filt Rate - Afr Amer 70 mL/min (>60); Glucose 92 mg/dL (74-106); Potassium 4.2 mmol/L (3.5-5.1); Sodium Level 140 mmol/L (136-145); Thyroid Stim Hormone (TSH) 4.69 uIU/mL (0.358-3.74)
== END ==
PROVIDERS: PCP Family Medicine; Referring Provider Family Medicine; Visit Provider Family Medicine
DX: R94.6 Abnormal results of thyroid function studies (principal); Z13.1 Encounter for screening for diabetes mellitus
CPT/HCPCS: 36415; 80048; 84443

== ENCOUNTER → 2020-10-16 11:46 | Outpatient (CLI) | payer MEDICARE, OTHER, SELFPAY ==
[2020-05-11 11:19] VITALS: BMI 25.0
== END ==
PROVIDERS: PCP Family Medicine; Referring Provider Urology; Visit Provider Urology
DX: R97.20 Elevated prostate specific antigen [PSA] (principal)
CPT/HCPCS: 36415; 84153

== ENCOUNTER → 2020-11-19 09:03 | Outpatient (CLI) | payer MEDICARE, OTHER, SELFPAY ==
[2020-05-11 11:19] VITALS: BMI 25.0
[2020-11-19 10:40] LABS: AST(SGOT) 20 U/L (15-37); Alanine Aminotransfer ALT/SGPT 16 U/L (16-61); Albumin, Serum 3.6 g/dL (3.2-5.0); Alkaline Phosphatase 87 U/L (45-117); Bilirubin, Direct 0.18 mg/dL (0.00-0.30); Cholesterol 116 mg/dL (200); Globulin 3.2 g/dL (2.2-4.2); High Density Lipoprotein 47 mg/dL; Protein, Total 6.8 g/dL (6.4-8.2); Triglycerides 73 mg/dL; Very Low Density Lipoprotein 15 mg/dL (5-40)
== END ==
PROVIDERS: PCP Family Medicine; Referring Provider Internal Medicine Cardiovascular Disease; Visit Provider Internal Medicine Cardiovascular Disease
DX: E78.00 Pure hypercholesterolemia, unspecified (principal)
CPT/HCPCS: 36415; 80061; 80076

== ENCOUNTER → 2020-12-02 09:46 | Outpatient (CLI) | payer MEDICARE, OTHER, SELFPAY ==
[2020-11-23 10:24] VITALS: BMI 25.9
--- NOTE | 2020-12-02 09:47 | ECHOD_ITS ---
Reason For Study: Dyspnea/SOB Procedure This was a 2D Doppler, Color Flow transthoracic echocardiogram. Exam performed in department. Left Ventricle Normal LV size. Left ventricular systolic function is normal. The estimated ejection fraction is 65 %. No evidence for diastolic dysfunction. No regional wall motion abnormalities noted. Right Ventricle Normal RV size. Normal systolic function. Atria Normal left atrium. Normal right atrium. No doppler evidence for ASD. Mitral Valve There is mild to moderate mitral annular calcification. Extension of the mitral annular calcification on the base of the posterior mitral valve leaflet. Mild (1+) mitral valve insufficiency. Tricuspid Valve Normal tricuspid valve. Mild tricuspid valve insufficiency. Right ventricular systolic pressure estimated to be 25 mmHg. Aortic Valve Trisinus/trileaflet aortic valve. Mild diffuse aortic valve thickening. Trivial aortic valve insufficiency. Pulmonic Valve The pulmonic valve is not well visualized. Mild (1+) pulmonic valve insufficiency. Great Vessels Normal sized aortic root. Pericardium/Pleural No pericardial effusion. MMode/2D Measurements & Calculations LVIDd: 4.6 cm IVSd: 1.1 cm Ao root diam: 3.0 cm LVIDs: 2.9 cm LVPWd: 0.88 cm RVDd: 3.9 cm FS: 37.8 % LAV(MOD-bp): 30.2 ml LVAd ap4: 26.3 cm2 SV(MOD-sp4): 50.0 ml LAV(MOD-bp) Indexed: 16.4 ml/m2 EDV(MOD-sp4): 74.3 ml LAV(MOD-sp2): 34.4 ml EDV(sp4-el): 73.7 ml LAV(MOD-sp4): 26.1 ml LVAs ap4: 13.9 cm2 ESV(MOD-sp4): 24.3 ml ESV(sp4-el): 24.0 ml EF(MOD-sp4): 67.3 % EF(sp4-el): 67.4 % SV(sp4-el): 49.6 ml LA A4 area: 12.1 cm2 LA dimension(2D): 3.6 cm RA A4 area: 15.3 cm2 Doppler Measurements & Calculations MV E max jensen: 58.5 cm/sec Lat Peak E' Jensen: 8.1 cm/sec Med Peak E' Jensen: 5.6 cm/sec MV A max jensen: 81.2 cm/sec E/E' lat: 7.3 E/E' med: 10.4 MV E/A: 0.72 Ao V2 max: 124.6 cm/sec LV V1 max: 81.9 cm/sec PA V2 max: 114.3 cm/sec Ao max P.2 mmHg LV V1 max P.7 mmHg Ao V2 mean: 85.4 cm/sec Ao mean P.2 mmHg Ao V2 VTI: 26.7 cm PI end-d jensen: 89.5 cm/sec TR max jensen: 235.8 cm/sec TR max P.2 mmHg Interpretation Summary Left ventricular systolic function is normal. The estimated ejection fraction is 65 %. There is mild to moderate mitral annular calcification. Extension of the mitral annular calcification on the base of the posterior mitral valve leaflet. Mild (1+) mitral valve insufficiency. Mild tricuspid valve insufficiency. Mild diffuse aortic valve thickening. Trivial aortic valve insufficiency. Mild (1+) pulmonic valve insufficiency. Right ventricular systolic pressure estimated to be 25 mmHg. No evidence for diastolic dysfunction. Ordering Physician: Sander Lorenzo Referring Physician: Sander Forbes Performed By: Chiquis Lorenzo, RDCS, RVT
== END ==
PROVIDERS: PCP Family Medicine; Referring Provider Nurse Practitioner Family; Visit Provider Nurse Practitioner Family
DX: I25.10 Atherosclerotic heart disease of native coronary artery without angina pectoris (principal); R06.00 Dyspnea, unspecified; I45.10 Unspecified right bundle-branch block; I49.3 Ventricular premature depolarization; I49.1 Atrial premature depolarization
CPT/HCPCS: 93306

== ENCOUNTER → 2021-01-22 11:34 | Outpatient (CLI) | payer MEDICARE, OTHER, SELFPAY ==
[2020-11-23 10:24] VITALS: BMI 25.9
[2021-01-22 15:45] LABS: Thyroid Stim Hormone (TSH) 4.02 uIU/mL (0.358-3.74)
== END ==
PROVIDERS: PCP Family Medicine; Referring Provider Family Medicine; Visit Provider Family Medicine
DX: E03.9 Hypothyroidism, unspecified (principal)
CPT/HCPCS: 36415; 84443

== ENCOUNTER → 2021-08-05 09:11 | Outpatient (CLI) | payer MEDICARE, OTHER, SELFPAY ==
[2021-08-05 11:08] LABS: Anion Gap 5 (5-15); BUN 23 mg/dL (7-18); BUN/Creat Ratio 20.5 RATIO (10-20); Calcium,Total 8.6 mg/dL (8.5-10.1); Chloride 109 mmol/L (98-107); Creatinine, Serum 1.12 mg/dL (0.70-1.30); EST Glomerular Filtration Rate 66 mL/min (>60); Est Glom Filt Rate - Afr Amer 80 mL/min (>60); Glucose 93 mg/dL (74-106); Potassium 4.6 mmol/L (3.5-5.1); Sodium Level 140 mmol/L (136-145); Thyroid Stim Hormone (TSH) 5.02 uIU/mL (0.358-3.74)
== END ==
PROVIDERS: PCP Nurse Practitioner Family; Referring Provider Nurse Practitioner Family; Visit Provider Nurse Practitioner Family
DX: Z00.00 Encounter for general adult medical examination without abnormal findings (principal); E03.9 Hypothyroidism, unspecified
CPT/HCPCS: 36415; 80048; 84443

== ENCOUNTER → 2021-09-13 08:42 | Outpatient (CLI) | payer MEDICARE, OTHER, SELFPAY ==
[2021-09-13 09:59] LABS: AST(SGOT) 24 U/L (15-37); Alanine Aminotransfer ALT/SGPT 19 U/L (16-61); Albumin, Serum 3.7 g/dL (3.2-5.0); Alkaline Phosphatase 93 U/L (45-117); Bilirubin, Direct 0.14 mg/dL (0.00-0.30); Cholesterol 120 mg/dL (200); Globulin 3.4 g/dL (2.2-4.2); High Density Lipoprotein 53 mg/dL; Protein, Total 7.1 g/dL (6.4-8.2); Triglycerides 64 mg/dL; Very Low Density Lipoprotein 13 mg/dL (5-40)
== END ==
PROVIDERS: PCP Nurse Practitioner Family; Referring Provider Internal Medicine Cardiovascular Disease; Visit Provider Internal Medicine Cardiovascular Disease
DX: E78.00 Pure hypercholesterolemia, unspecified (principal)
CPT/HCPCS: 36415; 80061; 80076

== ENCOUNTER 2021-11-02 11:25 | Outpatient (CLI) | payer MEDICARE, OTHER, SELFPAY | END 2021-11-02 23:59 | disposition short-term general hospital (02) | PROVIDERS: PCP Nurse Practitioner Family; Visit Provider Urology | DX: R97.20 Elevated prostate specific antigen [PSA] (principal) | CPT/HCPCS: 36415; 84153 ==

== ENCOUNTER → 2022-01-27 | Outpatient (CLI) | payer MEDICARE, OTHER, SELFPAY ==
[2022-01-27 18:03] LABS: Anion Gap 6 (5-15); BUN 27 mg/dL (7-18); BUN/Creat Ratio 21.8 RATIO (10-20); Calcium,Total 8.9 mg/dL (8.5-10.1); Chloride 110 mmol/L (98-107); Creatinine, Serum 1.24 mg/dL (0.70-1.30); EST Glomerular Filtration Rate 59 mL/min (>60); Est Glom Filt Rate - Afr Amer 71 mL/min (>60); Glucose 89 mg/dL (74-106); Potassium 4.8 mmol/L (3.5-5.1); Sodium Level 141 mmol/L (136-145); Thyroid Stim Hormone (TSH) 3.37 uIU/mL (0.358-3.74)
== END | disposition home or self-care (01) ==
LOC: MFPLAB 15:50
PROVIDERS: PCP Nurse Practitioner Family; Referring Provider Nurse Practitioner Family; Visit Provider Nurse Practitioner Family
DX: I25.10 Atherosclerotic heart disease of native coronary artery without angina pectoris (principal); E03.9 Hypothyroidism, unspecified
CPT/HCPCS: 36415; 80048; 84443

== ENCOUNTER → 2022-03-16 | Outpatient (CLI) | payer MEDICARE, OTHER, SELFPAY ==
[2022-03-16 11:10] LABS: AST(SGOT) 54 U/L (15-37); Alanine Aminotransfer ALT/SGPT 71 U/L (16-61); Albumin, Serum 3.5 g/dL (3.2-5.0); Alkaline Phosphatase 116 U/L (45-117); Bilirubin, Direct 0.16 mg/dL (0.00-0.30); Cholesterol 113 mg/dL (200); Globulin 3.3 g/dL (2.2-4.2); High Density Lipoprotein 48 mg/dL; Protein, Total 6.8 g/dL (6.4-8.2); Triglycerides 82 mg/dL; Very Low Density Lipoprotein 16 mg/dL (5-40)
== END | disposition home or self-care (01) ==
PROVIDERS: PCP Nurse Practitioner Family; Referring Provider Internal Medicine Cardiovascular Disease; Visit Provider Internal Medicine Cardiovascular Disease
DX: E78.00 Pure hypercholesterolemia, unspecified (principal)
CPT/HCPCS: 36415; 80061; 80076

== ENCOUNTER → 2022-06-13 | Outpatient (CLI) | payer MEDICARE, OTHER, SELFPAY ==
[2022-06-13 15:45] LABS: Thyroid Stim Hormone (TSH) 3.63 uIU/mL (0.358-3.74)
== END | disposition home or self-care (01) ==
LOC: MFPLAB 11:54
PROVIDERS: PCP Nurse Practitioner Family; Visit Provider Nurse Practitioner Family
DX: E03.9 Hypothyroidism, unspecified (principal)
CPT/HCPCS: 84443

== ENCOUNTER → 2022-09-19 | Outpatient (CLI) | payer MEDICARE, OTHER, SELFPAY ==
[2022-09-19 10:55] LABS: AST(SGOT) 19 U/L (15-37); Alanine Aminotransfer ALT/SGPT 19 U/L (16-61); Albumin, Serum 3.2 g/dL (3.2-5.0); Alkaline Phosphatase 90 U/L (45-117); Bilirubin, Direct 0.21 mg/dL (0.00-0.30); Cholesterol 113 mg/dL (200); Globulin 3.4 g/dL (2.2-4.2); High Density Lipoprotein 49 mg/dL; Protein, Total 6.6 g/dL (6.4-8.2); Triglycerides 59 mg/dL; Very Low Density Lipoprotein 12 mg/dL (5-40)
== END | disposition home or self-care (01) ==
LOC: LAB 09:05
PROVIDERS: PCP Nurse Practitioner Family; Referring Provider Internal Medicine Cardiovascular Disease; Visit Provider Internal Medicine Cardiovascular Disease
DX: E78.00 Pure hypercholesterolemia, unspecified (principal)
CPT/HCPCS: 36415; 80061; 80076

== ENCOUNTER → 2022-12-16 | Outpatient (CLI) | payer MEDICARE, OTHER, SELFPAY | END | disposition home or self-care (01) | LOC: LAB 11:23 | PROVIDERS: PCP Family Medicine; Visit Provider Urology | DX: R97.20 Elevated prostate specific antigen [PSA] (principal) | CPT/HCPCS: 36415; 84153 ==

== ENCOUNTER → 2023-03-13 | Outpatient (CLI) | payer MEDICARE, OTHER, SELFPAY ==
--- NOTE | 2023-03-13 14:37 | RAD_ITS ---
STUDY: X-RAY CHEST REASON FOR EXAM: Male, 87 years old. Shortness of breath, cough TECHNIQUE: PA and lateral views of the chest. COMPARISON: None. FINDINGS: Pectus excavatum deformity. There is hyperinflation of the lungs consistent with chronic obstructive lung disease (COPD). Scattered calcified granulomas. There is no demonstrated pleural abnormality. Normal size heart. Normal mediastinum and meggan. Normal visualized pulmonary arteries. Normal visualized aortic arch and descending thoracic aorta. There are diffuse degenerative changes of the visualized thoracic spine. Deformity of the right sixth rib most likely postsurgical in nature. There is no demonstrated abnormality of the visualized soft tissue structures of the upper abdomen. RAD/Chest PA and Lateral IMPRESSION: Hyperinflation. Scattered calcified granulomas. No acute abnormality is seen. Electronically Signed: Nestor Reza MD at 15:13 EDT ,
[2023-03-13 18:31] LABS: Absolute Lymphocyte Count 0.62 X10^3/uL (0.83-4.51); Absolute Neutrophil Count 7.9 X10^3/uL (2.0-7.7); Basophil# 0.05 X10^3/uL; Basophil% 0.5 % (0-1); Eosinophil# 0.18 X10^3/uL; Eosinophils% 1.9 % (0-5); Hematocrit 47.7 % (40-54); Lymphocyte # 0.62 X10^3/ul (0.83-4.51); Lymphocyte % 6.5 % (19-41); Mean Corp Hgb Conc 31.4 g/dL (32-36); Mean Corpuscular Hgb 30.5 pg (27.0-32.0); Mean Corpuscular Volume 97.1 fL (80-94); Mean Platelet Vol. 10.7 fl (6.2-12.0); Monocyte# 0.79 X10^3/uL; Monocyte% 8.2 % (0-10); NRBC Flagged by Analyzer 0 % (0-5); Neutrophil # 7.88 X10^3/uL (2.7-7.7); Neutrophil % 82.3 % (47-70); Platelet Count 154 K/mm3 (150-450); RBC Distribution Width SD 50.5 fl (35.1-43.9); Red Blood Count 4.91 M/mm3 (4.6-6.2); White Blood Count 9.6 K/mm3 (4.4-11.0)
== END | disposition home or self-care (01) ==
LOC: MTLAB 14:35
PROVIDERS: PCP Family Medicine; Referring Provider Nurse Practitioner Family; Visit Provider Nurse Practitioner Family
DX: R50.9 Fever, unspecified (principal); R06.02 Shortness of breath
CPT/HCPCS: 36415; 71046; 85025

== ENCOUNTER → 2023-03-21 | Outpatient (CLI) | payer MEDICARE, OTHER, SELFPAY ==
[2023-03-21 12:13] LABS: BNP,B-Type NATRIURETIC PEPTIDE 35.5 pg/mL (0-100)
[2023-03-21 12:14] LABS: Anion Gap 5 (5-15); BUN 15 mg/dL (7-18); BUN/Creat Ratio 14.6 RATIO (10-20); Calcium,Total 9.1 mg/dL (8.5-10.1); Chloride 110 mmol/L (98-107); Creatinine, Serum 1.03 mg/dL (0.70-1.30); EST Glomerular Filtration Rate 72 mL/min (>60); Est Glom Filt Rate - Afr Amer 88 mL/min (>60); Glucose 75 mg/dL (74-106); Potassium 4.2 mmol/L (3.5-5.1); Sodium Level 140 mmol/L (136-145)
[2023-03-21 12:19] LABS: AST(SGOT) 32 U/L (15-37); Alanine Aminotransfer ALT/SGPT 20 U/L (16-61); Albumin, Serum 2.8 g/dL (3.2-5.0); Alkaline Phosphatase 91 U/L (45-117); Bilirubin, Direct 0.13 mg/dL (0.00-0.30); Cholesterol 102 mg/dL (200); Globulin 3.6 g/dL (2.2-4.2); High Density Lipoprotein 30 mg/dL; Protein, Total 6.4 g/dL (6.4-8.2); Triglycerides 76 mg/dL; Very Low Density Lipoprotein 15 mg/dL (5-40)
== END | disposition home or self-care (01) ==
LOC: LAB 10:05
PROVIDERS: PCP Family Medicine; Referring Provider Nurse Practitioner Family; Visit Provider Nurse Practitioner Family
DX: R06.09 Other forms of dyspnea (principal); E78.00 Pure hypercholesterolemia, unspecified
CPT/HCPCS: 36415; 80048; 80061; 80076; 83880

== ENCOUNTER → 2023-03-23 | Outpatient (CLI) | payer MEDICARE, OTHER, SELFPAY ==
--- NOTE | 2023-03-24 05:59 | PFTCOMP ---
COMPLETE PULMONARY FUNCTION TEST INTERPRETATION Brief HPI: Patient is an 87-year-old male, currently under the care of Katlyn Morse, who presents to [facility] for complete pulmonary function tests secondary to diagnosis of dyspnea. Respiratory therapist reports good effort and reproducible results. Interpretation: Forced expiration spirometry shows no large airways obstructive ventilatory defect with an FEV1 of 120% predicted. There is no significant bronchodilator response by strict ATS criteria. Spirograms are of good quality and plateau normally. The respiratory flow volume loop shows a normal pattern. Lung volumes by body plethysmography show a slightly elevated total lung capacity at 6.35 L, 120% predicted. All other lung volumes are increased symmetrically. Diffusion capacity by carbon monoxide is normal at 110% predicted. The airway resistance is normal. No previous pulmonary function tests were available for review. Impression: These pulmonary function tests are grossly within normal limits
== END | disposition home or self-care (01) ==
LOC: PSN 08:49
PROVIDERS: PCP Family Medicine; Referring Provider Nurse Practitioner Family; Visit Provider Nurse Practitioner Family
DX: R06.02 Shortness of breath (principal)
CPT/HCPCS: 94060; 94726; 94729

== ENCOUNTER → 2023-03-24 | Outpatient (CLI) | payer MEDICARE, OTHER, SELFPAY ==
--- NOTE | 2023-03-24 15:33 | STRESSREP ---
Stress Test Report Exercise myocardial perfusion stress test. 87-year-old male with a history of coronary artery disease Stress protocol: Resting EKG demonstrates normal sinus rhythm with a rate of 62 bpm, and a right bundle branch block pattern noted with resting blood pressure is 112/50 mmHg. The patient exercised according to the regular [facility] protocol for a total duration of 5 minutes attaining a maximum heart rate of 139 bpm which was 104% of maximum predicted heart rate; the maximum workload was 7 metabolic equivalents. At rest there were no ST or T wave changes noted to suggest ischemia and at peak exercise upsloping ST changes only were noted which did not meet the criteria for ischemia. No clinical angina was noted the test was terminated due to the target heart rate being achieved/fatigue. The peak blood pressure was 152/70 mmHg. Rate-pressure product was 15,100. Myocardial perfusion protocol. 10.5 mCi of technetium 99m sestamibi was injected at rest. The patient exercised according to regular [facility] protocol for total duration of 5 minutes and at peak exercise 30.0 mCi of technetium 99m sestamibi was injected stress images were obtained stress and rest images were reconstructed in comparing the short axis vertical long and horizontal long axis. Gated images were also obtained. Perfusion SPECT analysis: Review of the stress images demonstrate normal uptake of tracer noted in all areas of the myocardium. The resting images similarly demonstrate normal uptake of tracer noted in all areas of the myocardium. No areas of reversibility are noted to suggest ischemia no previous infarct was noted. Gated SPECT analysis: The gated ejection fraction is 62%. Conclusion: Normal exercise myocardial perfusion stress test at a moderate workload Preserved ejection fraction.
== END | disposition home or self-care (01) ==
LOC: CVS 06:56
PROVIDERS: PCP Family Medicine; Referring Provider Internal Medicine Cardiovascular Disease; Visit Provider Internal Medicine Cardiovascular Disease
DX: R06.02 Shortness of breath (principal); R06.09 Other forms of dyspnea; I25.10 Atherosclerotic heart disease of native coronary artery without angina pectoris
CPT/HCPCS: 78452; 93017; A9500

== ENCOUNTER → 2023-10-09 | Outpatient (CLI) | payer MEDICARE, OTHER, SELFPAY ==
[2023-10-09 17:42] LABS: Absolute Neutrophil Count 4.4 X10^3/uL (2.0-7.7); Basophil# 0.03 X10^3/uL; Basophil% 0.5 % (0-1); Eosinophil# 0.11 X10^3/uL; Eosinophils% 1.8 % (0-5); Hematocrit 45.3 % (40-54); Lymphocyte % 13.1 % (19-41); Mean Corp Hgb Conc 30.9 g/dL (32-36); Mean Corpuscular Hgb 29.5 pg (27.0-32.0); Mean Corpuscular Volume 95.6 fL (80-94); Mean Platelet Vol. 9.7 fl (6.2-12.0); Monocyte# 0.79 X10^3/uL; Monocyte% 12.9 % (0-10); NRBC Flagged by Analyzer 0 % (0-5); Neutrophil # 4.35 X10^3/uL (2.7-7.7); Platelet Count 181 K/mm3 (150-450); RBC Distribution Width CV 14.1 % (11.6-14.6); RBC Distribution Width SD 49.7 fl (35.1-43.9); Red Blood Count 4.74 M/mm3 (4.6-6.2); White Blood Count 6.1 K/mm3 (4.4-11.0)
[2023-10-09 18:10] LABS: AST(SGOT) 29 U/L (15-37); Alanine Aminotransfer ALT/SGPT 21 U/L (16-61); Albumin, Serum 3.1 g/dL (3.2-5.0); Alkaline Phosphatase 84 U/L (45-117); Anion Gap 4 (5-15); BUN 21 mg/dL (7-18); BUN/Creat Ratio 15.2 RATIO (10-20); Calcium,Total 8.2 mg/dL (8.5-10.1); Chloride 112 mmol/L (98-107); Creatinine, Serum 1.38 mg/dL (0.70-1.30); EST Glomerular Filtration Rate 52 mL/min (>60); Est Glom Filt Rate - Afr Amer 63 mL/min (>60); Globulin 3.2 g/dL (2.2-4.2); Glucose 70 mg/dL (74-106); Potassium 4.6 mmol/L (3.5-5.1); Protein, Total 6.3 g/dL (6.4-8.2); Sodium Level 141 mmol/L (136-145)
== END | disposition home or self-care (01) ==
LOC: MFPLAB 15:02
PROVIDERS: PCP Family Medicine; Visit Provider Family Medicine
DX: R19.7 Diarrhea, unspecified (principal)
CPT/HCPCS: 36415; 80053; 85025

== ENCOUNTER → 2023-10-10 | Outpatient (CLI) | payer MEDICARE, OTHER, SELFPAY ==
[2023-10-13 07:08] LABS: H. PYLORI STOOL AG Negative (Negative)
== END | disposition home or self-care (01) ==
LOC: LABSPEC 13:30
PROVIDERS: PCP Family Medicine; Visit Provider Family Medicine
DX: R19.7 Diarrhea, unspecified (principal)
CPT/HCPCS: 87338; 87493

== ENCOUNTER → 2023-12-22 | Outpatient (CLI) | payer MEDICARE, OTHER, SELFPAY ==
[2023-12-22 16:40] LABS: Absolute Lymphocyte Count 1.12 X10^3/uL (0.83-4.51); Absolute Neutrophil Count 5.1 X10^3/uL (2.0-7.7); Basophil# 0.06 X10^3/uL; Basophil% 0.8 % (0-1); Eosinophil# 0.23 X10^3/uL; Eosinophils% 3.2 % (0-5); Hematocrit 45.4 % (40-54); Hemoglobin 14.3 g/dL (13.0-16.5); Lymphocyte # 1.12 X10^3/ul (0.83-4.51); Lymphocyte % 15.6 % (19-41); Mean Corp Hgb Conc 31.5 g/dL (32-36); Mean Corpuscular Volume 95.4 fL (80-94); Mean Platelet Vol. 9.7 fl (6.2-12.0); Monocyte# 0.63 X10^3/uL; Monocyte% 8.8 % (0-10); NRBC Flagged by Analyzer 0 % (0-5); Neutrophil % 71.2 % (47-70); Platelet Count 166 K/mm3 (150-450); RBC Distribution Width CV 14.1 % (11.6-14.6); RBC Distribution Width SD 49.1 fl (35.1-43.9); Red Blood Count 4.76 M/mm3 (4.6-6.2); White Blood Count 7.2 K/mm3 (4.4-11.0)
[2023-12-22 17:22] LABS: PSA,Total- Diagnostic 9.35 ng/mL (0.0-4.0)
[2023-12-22 17:24] LABS: AST(SGOT) 22 U/L (15-37); Alanine Aminotransfer ALT/SGPT 19 U/L (16-61); Albumin, Serum 3.2 g/dL (3.2-5.0); Alkaline Phosphatase 73 U/L (45-117); Anion Gap 5 (5-15); BUN 26 mg/dL (7-18); BUN/Creat Ratio 21.7 RATIO (10-20); Calcium,Total 8.1 mg/dL (8.5-10.1); Chloride 112 mmol/L (98-107); Cholesterol 118 mg/dL (200); EST Glomerular Filtration Rate 61 mL/min (>60); Est Glom Filt Rate - Afr Amer 73 mL/min (>60); Globulin 3.2 g/dL (2.2-4.2); Glucose 134 mg/dL (74-106); High Density Lipoprotein 52 mg/dL; Protein, Total 6.4 g/dL (6.4-8.2); Sodium Level 142 mmol/L (136-145); T4 Free Direct 1.01 ng/dL (0.76-1.46); Triglycerides 91 mg/dL; Very Low Density Lipoprotein 18 mg/dL (5-40)
== END | disposition home or self-care (01) ==
LOC: LAB 15:46
PROVIDERS: PCP Family Medicine; Referring Provider Urology; Visit Provider Urology
DX: R97.20 Elevated prostate specific antigen [PSA] (principal); E78.5 Hyperlipidemia, unspecified
CPT/HCPCS: 36415; 80053; 80061; 84153; 84439; 84443; 85025

== ENCOUNTER → 2024-05-07 | Outpatient (CLI) | payer MEDICARE, OTHER, SELFPAY ==
[2024-05-07 18:15] LABS: Thyroid Stim Hormone (TSH) 3.05 uIU/mL (0.358-3.74)
== END | disposition home or self-care (01) ==
LOC: MFPLAB 14:52
PROVIDERS: PCP Family Medicine; Visit Provider Family Medicine
DX: E03.9 Hypothyroidism, unspecified (principal)
CPT/HCPCS: 36415; 84443

== ENCOUNTER → 2024-10-09 | Outpatient (CLI) | payer MEDICARE, OTHER, SELFPAY ==
--- NOTE | 2024-10-09 12:44 | RAD_ITS ---
STUDY: X-RAY - LUMBAR SPINE REASON FOR EXAM: Male, 89 years old. Low back pain. TECHNIQUE: 2 view(s) of the lumbar spine were obtained. COMPARISON: None FINDINGS: Osteopenia. Normal lumbar lordosis. No substantial scoliosis. 2 mm of anterolisthesis of L4 on L5. Diffuse moderate lower thoracic and lumbosacral facet sclerosis. Diffuse intervertebral disc space narrowing with osteophytes most marked in the mid and lower lumbosacral region. Postsurgical changes in the pelvis. RAD/Lumbar Spine 2 or 3 Views IMPRESSION: Osteopenia with diffuse lower thoracic and lumbosacral spondylosis as described. No acute abnormality identified. Electronically Signed: Bubba Devine MD at 15:35 EST ,
== END | disposition home or self-care (01) ==
LOC: MTRAD 12:44
PROVIDERS: PCP Family Medicine; Referring Provider Family Medicine; Visit Provider Family Medicine
DX: M54.50 Low back pain, unspecified (principal)
CPT/HCPCS: 72100

== ENCOUNTER → 2024-12-26 | Outpatient (CLI) | payer MEDICARE, OTHER, SELFPAY | END | disposition home or self-care (01) | LOC: LAB 11:47 | PROVIDERS: PCP Family Medicine; Referring Provider Urology; Visit Provider Urology | DX: N40.1 Benign prostatic hyperplasia with lower urinary tract symptoms (principal) | CPT/HCPCS: 36415; 84153 ==